=== PATIENT | female | born 1965 | race Caucasian/White ===

== ENCOUNTER 2018-06-14 19:36 | Emergency (ER) | payer SELFPAY ==
[~2018-06-14] VITALS: Ht 170.2 cm; Wt 114.7 kg
[~2018-06-14 19:36] MED LIST: FLEXERIL10 MG PO; MOTRIN600 MG PO; NOHOMEMEDS; NORCO 7.5/321 TABLET PO; ULTRAM50 MG PO; ZITHROMAX Z-PA250 MG PO
[2018-06-14] MEDS ORDERED: NAPROSYN500 MG PO (20:40)
[2018-06-14 21:10] VITALS: BP 151/84
== END 2018-06-14 21:12 | disposition home or self-care (01) ==
LOC: EME 19:36
DX: M65.4 Radial styloid tenosynovitis [de Quervain] (principal); Z91.81 History of falling; Z88.8 Allergy status to other drugs, medicaments and biological substances
CPT/HCPCS: 73130; 99281; 99283